=== PATIENT | male | born 1955 | race Caucasian/White ===

== ENCOUNTER 2022-05-03 10:16 | Outpatient (CLI) | payer BC | END 2022-05-03 10:17 | disposition home or self-care (01) | LOC: BICRAD 10:16 | PROVIDERS: ATTEND Family Medicine | DX: R76.12 Nonspecific reaction to cell mediated immunity measurement of gamma interferon antigen response without active tuberculosis (principal) | CPT/HCPCS: 71046 ==

== ENCOUNTER 2024-04-22 08:46 | Outpatient (CLI) | payer MEDICARE | END 2024-04-22 08:47 | disposition home or self-care (01) | LOC: BICRAD 08:46 | PROVIDERS: ATTEND Family Medicine | DX: T14.8XXA Other injury of unspecified body region, initial encounter (principal); W19.XXXA Unspecified fall, initial encounter; M16.12 Unilateral primary osteoarthritis, left hip; S93.119A Dislocation of interphalangeal joint of unspecified toe(s), initial encounter | CPT/HCPCS: 71046 ==

== ENCOUNTER 2024-05-17 08:08 | Inpatient (IN) | payer MEDICARE ==
[2024-05-17 09:01] LABS: #Basophils 0.07 10x3/uL (0.0-0.2); %Basophils 0.7 % (0.0-1.0); %Eosinophils 1.5 % (0.0-10.0); %Lymphocytes 11.6 % (21.0-51.0); %Monocytes 9.1 % (0.0-10.0); %Neutrophils 76.3 % (42.0-75.0); Hematocrit 39.4 % (42.0-52.0); Hemoglobin 13.2 g/dL (14.0-18.0); Mean Corpuscular HGB CONC 33.5 g/dL (32.0-36.0); Mean Corpuscular Hemoglobin 32.5 pg (27.0-31.0); Mean Platelet Volume 9.9 fL (7.4-10.4); Platelet Count 180 10x3/uL (130-400); RBC Distribution Width 12.5 % (11.5-14.5); Red Blood Cell (RBC) Count 4.06 mill/uL (4.70-6.10)
[2024-05-17] MEDS ORDERED: Piperacillin/Tazobactam 3.375 GM VIAL ONE (09:15)
[2024-05-17] MEDS ORDERED: Sodium Chloride 0.9% 100 ML ONE (09:15)
[2024-05-17 09:29] LABS: ALT (SGPT) 21 U/L (8-55); AST (SGOT) 23 U/L (5-34); Albumin 3.8 g/dL (3.4-4.8); Alkaline Phosphatase 70 U/L (40-110); Anion Gap 14 mmol/L (10-20); BUN (Urea Nitrogen) 15 mg/dL (8.4-25.7); Bilirubin, Total 0.6 mg/dL (0.2-1.2); Calc. Creatinine Clearance 0 mL/min (70-130); Calcium 8.8 mg/dL (7.8-10.44); Carbon Dioxide 23 mmol/L (23-31); Chloride 106 mmol/L (98-107); Estimated GFR 96; Glucose 129 mg/dL (80-115); Potassium 4.1 mmol/L (3.5-5.1); Protein, Total 6.8 g/dL (5.8-8.1); Sodium 139 mmol/L (136-145)
[2024-05-17 10:02] LABS: Bilirubin Negative (Negative); Blood, Urine Negative (Negative); Glucose, Urine (Dipstick) Negative (Negative); Ketone, Urine Negative (Negative); Leukocyte Negative (Negative); Nitrite Negative (Negative); Protein, Urine (Dipstick) Trace mg/dL (Neg-Trace)
[2024-05-17 10:16] LABS: Clarity Clear (Clear); Specific Gravity, Urine 1.021 (1.002-1.036)
[2024-05-17] MEDS ORDERED: VANCOMYCIN IVPB PRN (10:20)
[2024-05-17] MEDS ORDERED: Ondansetron PF 4 MG/2 ML Vial IVP PRN (10:50)
[2024-05-17] MEDS ORDERED: traMADol HCl 50 MG TAB PO PRN (10:50)
[2024-05-17 10:52] LABS: Bacteria/HPF Rare-Few HPF (None Seen); CAUTI Indications for Culture < 2yrs of age; RBC/HPF 0-3 HPF (0-3)
[2024-05-17 10:53] LABS: Urine Culture Reflex Yes Yes
[2024-05-17 10:57] LABS: Squamous Epithelial 0-3 HPF (0-3); WBC/HPF Greater than 50 HPF (0-3)
[2024-05-17 13:44] VITALS: BMI 45.0
[2024-05-17] MEDS: Vancomycin (BATCH) 2.5 GM in Premix 1 BAG IVPB SCH (13:55)
[2024-05-17] MEDS: Piperacillin/Tazobactam 3.375 GM in Sodium Chloride 0.9% 100 ML IVPB SCH (15:35)
[2024-05-17 16:58] LABS: Hemoglobin A1c 5.6 % (4.0-6.0)
[2024-05-17] MEDS: Vancomycin (BATCH) 1.5 GM in Premix 1 BAG IVPB SCH (18:26)
[2024-05-17] MEDS ORDERED: Vancomycin 1 GM in Premix 1 BAG IVPB SCH (21:00)
[2024-05-17] MEDS: Buprenorphine HCl 2 MG SL TAB PO SCH (21:27)
[2024-05-17] MEDS: traZODone HCl 150 MG TAB PO SCH (21:27)
[2024-05-17] MEDS: Famotidine 20 MG TAB PO SCH (21:27)
[2024-05-17] MEDS: cloNIDine 0.2 MG TAB PO SCH (21:42)
[2024-05-17] MEDS: Losartan 25 MG TAB PO SCH (21:58)
[2024-05-18 05:11] LABS: #Basophils 0.08 10x3/uL (0.0-0.2); %Basophils 0.8 % (0.0-1.0); %Eosinophils 2.9 % (0.0-10.0); %Lymphocytes 18.9 % (21.0-51.0); %Monocytes 11.3 % (0.0-10.0); %Neutrophils 65.7 % (42.0-75.0); Hematocrit 36.1 % (42.0-52.0); Hemoglobin 11.9 g/dL (14.0-18.0); Mean Corpuscular Hemoglobin 32.2 pg (27.0-31.0); Mean Corpuscular Volume 97.8 fL (78.0-98.0); Mean Platelet Volume 10.4 fL (7.4-10.4); Platelet Count 163 10x3/uL (130-400); RBC Distribution Width 12.6 % (11.5-14.5); Red Blood Cell (RBC) Count 3.69 mill/uL (4.70-6.10)
[2024-05-18 05:24] LABS: Anion Gap 11 mmol/L (10-20); BUN (Urea Nitrogen) 14 mg/dL (8.4-25.7); Calc. Creatinine Clearance 175 mL/min (70-130); Calcium 8.3 mg/dL (7.8-10.44); Carbon Dioxide 26 mmol/L (23-31); Chloride 106 mmol/L (98-107); Estimated GFR 94; Glucose 109 mg/dL (80-115); Potassium 4.4 mmol/L (3.5-5.1); Sodium 139 mmol/L (136-145)
[2024-05-18 05:29] LABS: Vancomycin, Random 15.7 ug/mL (See Comment)
[2024-05-18] MEDS: Losartan 25 MG TAB PO SCH (09:12)
[2024-05-18] MEDS: Enoxaparin 40 MG (0.4 mL) SYRINGE SC SCH (09:12)
[2024-05-18] MEDS: Tamsulosin HCl 0.4 MG CAP PO SCH (09:14)
[2024-05-18] MEDS: Aspirin 81 mg Enteric Coated Tablet PO SCH (09:17)
[2024-05-18] MEDS: Nystatin Powder 15 GM BOT TOP PRN (11:25)
[2024-05-18] MEDS ORDERED: hydrALAZINE 20 MG/ML VIAL SLOW IVP PRN (12:01)
[2024-05-18] MEDS: Acetaminophen 325 MG TAB PO PRN (12:24)
[2024-05-18] MEDS: cloNIDine 0.1 MG TAB PO SCH (20:53)
[2024-05-19 04:29] LABS: %Basophils 1.1 % (0.0-1.0); %Eosinophils 3.7 % (0.0-10.0); %Lymphocytes 21.5 % (21.0-51.0); %Monocytes 11.7 % (0.0-10.0); %Neutrophils 61.5 % (42.0-75.0); Mean Corpuscular HGB CONC 33.3 g/dL (32.0-36.0); Mean Corpuscular Hemoglobin 32.3 pg (27.0-31.0); Mean Platelet Volume 10.6 fL (7.4-10.4); Platelet Count 159 10x3/uL (130-400); RBC Distribution Width 12.6 % (11.5-14.5); Red Blood Cell (RBC) Count 3.71 mill/uL (4.70-6.10)
[2024-05-19 04:54] LABS: Anion Gap 13 mmol/L (10-20); BUN (Urea Nitrogen) 11 mg/dL (8.4-25.7); Calc. Creatinine Clearance 209 mL/min (70-130); Calcium 8.6 mg/dL (7.8-10.44); Carbon Dioxide 23 mmol/L (23-31); Chloride 106 mmol/L (98-107); Estimated GFR 100; Glucose 100 mg/dL (80-115); Potassium 3.9 mmol/L (3.5-5.1); Sodium 138 mmol/L (136-145)
[2024-05-19 04:55] LABS: CRP,High Sensitivity (Inhouse) 0.61 mg/dL (< or = 0.5)
[2024-05-19] MEDS: hydrALAZINE 25 MG TAB PO SCH (09:22)
[2024-05-19] MEDS: Melatonin 3 MG TAB PO SCH (21:41)
[2024-05-19] MEDS: Buprenorphine HCl 2 MG SL TAB PO SCH (21:42)
[2024-05-20 06:17] LABS: #Basophils 0.08 10x3/uL (0.0-0.2); %Basophils 0.9 % (0.0-1.0); %Eosinophils 3.7 % (0.0-10.0); %Lymphocytes 18.3 % (21.0-51.0); %Monocytes 13.4 % (0.0-10.0); Hematocrit 36.8 % (42.0-52.0); Hemoglobin 12.1 g/dL (14.0-18.0); Mean Corpuscular HGB CONC 32.9 g/dL (32.0-36.0); Mean Corpuscular Hemoglobin 31.7 pg (27.0-31.0); Mean Corpuscular Volume 96.3 fL (78.0-98.0); Mean Platelet Volume 10.4 fL (7.4-10.4); Platelet Count 170 10x3/uL (130-400); RBC Distribution Width 12.8 % (11.5-14.5); Red Blood Cell (RBC) Count 3.82 mill/uL (4.70-6.10)
[2024-05-20 06:53] LABS: Anion Gap 13 mmol/L (10-20); BUN (Urea Nitrogen) 11 mg/dL (8.4-25.7); Calc. Creatinine Clearance 177 mL/min (70-130); Calcium 8.7 mg/dL (7.8-10.44); Carbon Dioxide 22 mmol/L (23-31); Chloride 106 mmol/L (98-107); Estimated GFR 95; Glucose 99 mg/dL (80-115); Potassium 3.8 mmol/L (3.5-5.1); Sodium 137 mmol/L (136-145); Vancomycin, Random 12.1 ug/mL (See Comment)
[2024-05-20] MEDS ORDERED: Hydrocortisone 2.5% Cream 30 GM TUBE TOP PRN (08:25)
[2024-05-20 12:33] VITALS: BP 142/68; TEMP 98.4
== END 2024-05-20 12:50 | disposition home or self-care (01) | DRG 728 ==
LOC: ERS 08:08 → ERHOLD 10:31 → MSONC 13:39
PROVIDERS: ADMIT Internal Medicine; ATTEND Internal Medicine
DX: N49.2 Inflammatory disorders of scrotum (principal); N39.0 Urinary tract infection, site not specified; Z68.42 Body mass index [BMI] 45.0-49.9, adult; I10 Essential (primary) hypertension; F17.210 Nicotine dependence, cigarettes, uncomplicated; R73.03 Prediabetes; E66.01 Morbid (severe) obesity due to excess calories; N43.3 Hydrocele, unspecified; Z79.82 Long term (current) use of aspirin; Z79.899 Other long term (current) drug therapy
CPT/HCPCS: 36415; 71045; 76870; 80048; 80053; 80202; 81001; 83036; 83605; 85025; 86141; 87040; 87077; 87086; 87186; 93005; 93010; 93976; 94760; 96365; 96375; 97139; G0103; J0571; J1650; J2543; J3370